=== PATIENT | male | born 1935 | race Caucasian/White ===

== ENCOUNTER 2018-04-24 13:13 | Emergency (ER) | payer MEDICARE ==
--- NOTE | 2018-04-24 14:18 | XR ---
EXAMINATION TYPE: XR pelvis AP view DATE OF EXAM: 04/24/2018 CLINICAL HISTORY: Fall injury today with pain. TECHNIQUE: A single AP view of the pelvis is obtained. COMPARISON: None. FINDINGS: There is no acute fracture/dislocation evident in the pelvis. There is moderate axial join t space loss in both hips. Sacroiliac joints are maintained. Pubic symphysis is intact. Scattered pel naomie phleboliths are present bilaterally. IMPRESSION: There is no acute fracture or dislocation in the pelvis.
--- NOTE | 2018-04-24 14:23 | ED ---
Fall HPI - General Chief Complaint: Fall Stated Complaint: fall Time Seen by Provider: 04/24/18 13:43 Source: patient, family, RN notes reviewed Mode of arrival: ambulatory Limitations: no limitations - History of Present Illness Initial Comments: 82-year-old male presented from chief complaint fall. Patient was getting out of the shower with caregiver and fell the caregiver caught his head he did not strike his head or neck region. He has no complaints himself he does have an area of bruising noted on his right buttocks region. Patient denies any chest pain or shortness of breath. This was a mechanical fall. Patient is able to ambulate with no difficulty and denies any. Patient offers no other complaints. - Related Data Allergies Allergy/AdvReac Type Severity Reaction Status Date / Time No Known Allergies Allergy Verified 04/24/18 13:22 Review of Systems ROS Statement: Those systems with pertinent positive or pertinent negative responses have been documented in the HPI. ROS Other: All systems not noted in ROS Statement are negative. Past Medical History Additional Past Medical History / Comment(s): Alzeihmsherrie Gout History of Any Multi-Drug Resistant Organisms: None Reported Past Surgical History: No Surgical Hx Reported Past Psychological History: Depression Smoking Status: Former smoker Past Alcohol Use History: None Reported Past Drug Use History: None Reported General Exam Limitations: altered mental status General appearance: alert, in no apparent distress Head exam: Present: atraumatic, normocephalic, normal inspection Eye exam: Present: normal appearance, PERRL, EOMI. Absent: scleral icterus, conjunctival injection, periorbital swelling ENT exam: Present: normal exam, mucous membranes moist Neck exam: Present: normal inspection, full ROM. Absent: tenderness, meningismus, lymphadenopathy Respiratory exam: Present: normal lung sounds bilaterally. Absent: respiratory distress, wheezes, rales, rhonchi, stridor Cardiovascular Exam: Present: regular rate, normal rhythm, normal heart sounds. Absent: systolic murmur, diastolic murmur, rubs, gallop, clicks GI/Abdominal exam: Present: soft, normal bowel sounds. Absent: distended, tenderness, guarding, rebound, rigid Extremities exam: Present: full ROM, normal capillary refill. Absent: normal inspection (There is a superficial 1 cm laceration to her left lower leg, hematoma to the right buttocks), tenderness, pedal edema, joint swelling, calf tenderness Back exam: Present: normal inspection, full ROM. Absent: tenderness, paraspinal tenderness, vertebral tenderness Neurological exam: Present: alert, oriented X3, CN II-XII intact, reflexes normal. Absent: motor sensory deficit Skin exam: Present: warm, dry, intact, normal color. Absent: rash Course Vital Signs 04/24/18 13:19 Temperature 97.9 F Pulse Rate 91 Respiratory 20 Rate Blood Pressure 127/77 O2 Sat by Pulse 99 Oximetry Medical Decision Making - Medical Decision Making 82-year-old male presents from for mechanical fall. Patient had a hematoma to his right buttocks region there is able to ambulate and complains of no pain. Patient did have an x-ray of his pelvis which is stable. Patient will be discharged at this time. Return parameters were discussed. Disposition Clinical Impression: Fall, Traumatic hematoma of buttock Disposition: HOME SELF-CARE Condition: Stable Instructions: Hematoma (ED) Additional Instructions: Please return to the Emergency Department if symptoms worsen or any other concerns. Is patient prescribed a controlled substance at d/c from ED?: No Referrals: Priscilla Fong III, MD [Primary Care Provider] - 1-2 days Time of Disposition: 14:23
[2018-04-24 14:38] VITALS: BP 125/80; PULSE 78; RESP 18; TEMP 98.5
== END 2018-04-24 14:40 | disposition home or self-care (01) ==
LOC: EC 13:13
DX: S30.0XXA Contusion of lower back and pelvis, initial encounter (principal); S81.812A Laceration without foreign body, left lower leg, initial encounter; R41.82 Altered mental status, unspecified; Z87.891 Personal history of nicotine dependence; W18.2XXA Fall in (into) shower or empty bathtub, initial encounter; Y93.89 Activity, other specified
CPT/HCPCS: 72170; 99283

== ENCOUNTER → 2018-10-09 | Outpatient (CLI) | payer MEDICARE ==
--- NOTE | 2018-10-15 12:43 | P.ARTDOP ---
Arterial Doppler LOWER EXTREMITY ARTERIAL DOPPLER: DATE OF SERVICE: 10/09/2018 Reason for study: Foot ulcers. Doppler waveforms: Multiphasic bilaterally throughout. Pulse volume recording: []. Pressure gradients: None. Ankle-brachial indices: Greater than 1 bilaterally. Toe pressures: 130 on the right, 139 on the left Impression: Normal study.
== END ==
LOC: RADUSWWP 13:37
PROVIDERS: ATTEND Family Medicine
DX: R20.9 Unspecified disturbances of skin sensation (principal); R23.8 Other skin changes
CPT/HCPCS: 93922